=== PATIENT | female | born 1980 | race Caucasian/White ===

== ENCOUNTER 2017-09-23 18:24 | Emergency (ER) | payer OTHER ==
[~2017-09-23] VITALS: Ht 162.6 cm; Wt 111.1 kg
[~2017-09-23 18:24] MED LIST: ACETAMINOPHEN-1 EAC1 PO; AMITRIPTYLINE H25 M2 PO; ANUSOL-HC25 MG RECTAL; BENTYL 10 MG CA10 M1 PO; CEPHALEXIN 500500 M3 PO; CIPRO250 M1 PO; CIPRO500 MG PO; COLACE100 MG PO; COLESTID1 GM PO; DILAUDID 2 MG TA2 MG PO; DONNATAL E16.2 MG/5 PO; ERYTHROMYCIN500 MG PO; FLAGYL500 MG PO; FLEXERIL PO; GABAPENTIN 100100 MG PO; HYDROCODONE-AP1 EAC6 PO; IBUPROFEN 800800 M1 PO; IBUPROFEN 800800 MG PO; LOPERAMIDE 2 MG2 M1 PO; MEDROLDOSEPACK PO; METFORMIN HCL500 MG PO; MIRALAX17 GM PO; MOBIC7.5 MG PO; NOHOMEMEDICATIONS; NORCO 5-325 TA1 EAC1 PO; ONDANSETRON HCL4 M2 PO; OXYCODONE HCL5 M1 PO; OXYCODONE-ACET1 EACH PO; PANTOPRAZOLE SO40 M1 PO; PERCOCET; PERCOCET 5-3251 EACH PO; PERCOCET PO; PHENERGAN 25 MG25 M1 PO; PROAIR HFA8.5 GM INH; PROMETHAZINE D480 ML PO; PROMETHAZINE12.5 M1 PO; PYRIDIUM200 MG PO; RANITIDINE 150150 M1 PO; REGLAN 10 MG TA10 MG PO; TESSALON PERLE100 MG PO; TESSALON200 MG PO; TORADOL 10 MG T10 MG PO; TRAMADOL 50 MG50 MG PO; TRANSDERM-SCO1 PATC1 TRANSDERM; ZANAFLEX2 MG PO; ZANTAC 150MG T150 MG PO; ZOFRAN ODT4 MG PO; ZOFRAN4 MG PO; [UNRECOGNIZED DRUG - REMARK]
[2017-09-23] MEDS ORDERED: INDOMETHACIN 5050 M1 PO (18:44)
[2017-09-23 19:15] LABS: ABSOLUTE BASOPHILS 0.1 thou/uL (0.0-0.2); ABSOLUTE EOSINOPHILS 0.4 thou/uL (0.0-0.7); ABSOLUTE LYMPHOCYTES 3.6 thou/uL (0.8-5.3); ABSOLUTE MONOCYTES 0.9 thou/uL (0.0-1.2); ABSOLUTE NEUTROPHILS 11.3 thou/uL (1.6-8.1); BASOPHILS 0.7 %; EOSINOPHILS 2.4 %; HEMATOCRIT 35.6 % (37.0-47.0); HEMOGLOBIN 11.7 gm/dL (12.0-15.0); LYMPHOCYTES 22.1 %; MCH 26.3 pg (26.0-34.0); MCHC 32.8 g/dL (28.0-37.0); MCV 80.1 fL (80.0-100.0); MONOCYTES 5.5 %; MPV 8.2 fl. (7.2-11.1); NUCLEATED RBCS 0 /100WBC; PLATELET COUNT* 293 thou/uL (150-400); POLYS 69.3 %; RBC 4.45 mil/uL (4.20-5.00); RDW-CV 15.7 % (10.5-14.5); WBC 16.3 thou/uL (4.0-11.0)
[2017-09-23 19:23] LABS: URINE BILIRUBIN NEGATIVE (Negative); URINE BLOOD 1+ (Negative); URINE CLARITY CLEAR; URINE COLOR YELLOW; URINE GLUCOSE-RANDOM NEGATIVE (Negative); URINE KETONES NEGATIVE (Negative); URINE LEUKOCYTES TRACE (Negative); URINE NITRITE NEGATIVE (Negative); URINE PROTEIN NEGATIVE (Negative); URINE SPECIFIC GRAVITY >= 1.030 (1.005-1.030); URINE UROBILINOGEN 0.2 E.U./dl (0.2-1.0)
[2017-09-23 19:23] LABS: CALCIUM 8.5 mg/dL (8.5-10.1); CREATININE 0.9 mg/dL (0.6-1.3); POTASSIUM 3.9 mmol/L (3.5-5.1)
[2017-09-23 19:27] LABS: ALBUMIN 3.5 g/dL (3.4-5.0); TOTAL BILIRUBIN 0.2 mg/dL (<0.1-1.0); TOTAL PROTEIN 7.3 g/dL (6.4-8.2)
[2017-09-23 19:32] LABS: AMP/METHAMP Negative (Negative); BARBITURATES Negative (Negative); BENZODIAZEPINES POSITIVE (Negative); COCAINE Negative (Negative); METHADONE Negative (Negative); OPIATES POSITIVE (Negative); PCP Negative (Negative); THC Negative (Negative)
[2017-09-23 19:36] LABS: SQUAMOUS 4-10 Moderate /LPF (0-3)
[2017-09-23 19:37] LABS: BACTERIA None Seen /HPF (None Seen); CASTS None Seen /LPF (None Seen); MUCUS 0-3 Light strn/LPF (None Seen); URINE RBC 3-10 Few /HPF (0-2); URINE WBC 0-5 Rare /HPF (0-5)
[2017-09-23 19:38] LABS: CRYSTALS None Seen /LPF (None Seen)
[2017-09-23] MEDS ORDERED: NAPROSYN500 MG PO (21:44)
[2017-09-23] MEDS ORDERED: PHENERGAN 25 MG25 M1 PO (21:47)
[2017-09-23] MEDS ORDERED: FLAGYL500 MG PO (22:30)
[2017-09-23] MEDS ORDERED: CIPRO500 M1 PO (22:30)
[2017-09-23 22:55] VITALS: BP 125/75
== END 2017-09-23 22:55 | disposition home or self-care (01) ==
LOC: M.ERS 18:24
PROVIDERS: Nurse Practitioner Family
DX: K52.9 Noninfective gastroenteritis and colitis, unspecified (principal); G89.29 Other chronic pain; M54.9 Dorsalgia, unspecified; G43.909 Migraine, unspecified, not intractable, without status migrainosus; J42 Unspecified chronic bronchitis; F17.210 Nicotine dependence, cigarettes, uncomplicated; Z90.710 Acquired absence of both cervix and uterus; Z90.49 Acquired absence of other specified parts of digestive tract; Z88.5 Allergy status to narcotic agent; Z88.1 Allergy status to other antibiotic agents

== ENCOUNTER 2018-03-31 17:12 | Emergency (ER) | payer OTHER ==
[~2018-03-31] VITALS: Ht 162.6 cm; Wt 108.9 kg
[~2018-03-31 17:12] MED LIST changes: +CIPRO500 M1 PO; +INDOMETHACIN 5050 M1 PO; +NAPROSYN500 MG PO
[2018-03-31 18:26] LABS: URINE BILIRUBIN NEGATIVE (Negative); URINE BLOOD TRACE (Negative); URINE CLARITY CLEAR; URINE COLOR YELLOW; URINE GLUCOSE-RANDOM NEGATIVE (Negative); URINE KETONES NEGATIVE (Negative); URINE LEUKOCYTES-REFLEX NEGATIVE (Negative); URINE NITRITE-REFLEX NEGATIVE (Negative); URINE PROTEIN NEGATIVE (Negative); URINE UROBILINOGEN 0.2 E.U./dl (0.2-1.0)
[2018-03-31 18:35] LABS: ABSOLUTE BASOPHILS 0.1 thou/uL (0.0-0.2); ABSOLUTE EOSINOPHILS 0.2 thou/uL (0.0-0.7); ABSOLUTE LYMPHOCYTES 3.2 thou/uL (0.8-5.3); ABSOLUTE MONOCYTES 0.8 thou/uL (0.0-1.2); ABSOLUTE NEUTROPHILS 11.7 thou/uL (1.6-8.1); BASOPHILS 0.9 %; EOSINOPHILS 1.2 %; HEMATOCRIT 36.7 % (37.0-47.0); HEMOGLOBIN 12.1 gm/dL (12.0-15.0); LYMPHOCYTES 19.8 %; MCH 26.5 pg (26.0-34.0); MCV 80.3 fL (80.0-100.0); MPV 8.5 fl. (7.2-11.1); NUCLEATED RBCS 0 /100WBC; PLATELET COUNT* 279 thou/uL (150-400); POLYS 73.1 %; RBC 4.57 mil/uL (4.20-5.00); RDW-CV 17.1 % (10.5-14.5)
[2018-03-31 18:45] LABS: CALCIUM 9.5 mg/dL (8.5-10.1); CREATININE 0.9 mg/dL (0.6-1.3); POTASSIUM 3.8 mmol/L (3.5-5.1)
[2018-03-31 18:49] LABS: ALBUMIN 3.5 g/dL (3.4-5.0); TOTAL BILIRUBIN 0.2 mg/dL (<0.1-1.0); TOTAL PROTEIN 8.1 g/dL (6.4-8.2)
[2018-03-31] MEDS ORDERED: BENTYL 20 MG TA20 M1 PO (21:03)
[2018-03-31 21:23] VITALS: BP 122/76
== END 2018-03-31 21:27 | disposition home or self-care (01) ==
LOC: M.ERS 17:12
PROVIDERS: Nurse Practitioner Family
DX: K52.9 Noninfective gastroenteritis and colitis, unspecified (principal); G43.909 Migraine, unspecified, not intractable, without status migrainosus; M54.9 Dorsalgia, unspecified; G89.29 Other chronic pain; Z90.49 Acquired absence of other specified parts of digestive tract; Z90.710 Acquired absence of both cervix and uterus; F17.210 Nicotine dependence, cigarettes, uncomplicated; Z88.5 Allergy status to narcotic agent; Z88.8 Allergy status to other drugs, medicaments and biological substances

== ENCOUNTER 2020-03-21 11:39 | Emergency (ER) | payer OTHER ==
[~2020-03-21] VITALS: Ht 162.6 cm; Wt 106.6 kg
[~2020-03-21 11:39] MED LIST changes: +BENTYL 20 MG TA20 M1 PO
[2020-03-21 12:56] LABS: ABSOLUTE BASOPHILS 0.1 thou/uL (0.0-0.2); ABSOLUTE EOSINOPHILS 0.1 thou/uL (0.0-0.7); ABSOLUTE LYMPHOCYTES 1.9 thou/uL (0.8-5.3); ABSOLUTE MONOCYTES 0.6 thou/uL (0.0-1.2); ABSOLUTE NEUTROPHILS 10.7 thou/uL (1.6-8.1); BASOPHILS 0.7 %; EOSINOPHILS 0.9 %; HEMATOCRIT 37.4 % (37.0-47.0); HEMOGLOBIN 12.4 gm/dL (12.0-15.0); LYMPHOCYTES 13.9 %; MCH 26.6 pg (26.0-34.0); MCHC 33.1 g/dL (28.0-37.0); MCV 80.4 fL (80.0-100.0); MONOCYTES 4.7 %; MPV 8.2 fl. (7.2-11.1); NUCLEATED RBCS 0 /100WBC; PLATELET COUNT* 262 thou/uL (150-400); POLYS 79.8 %; RBC 4.66 mil/uL (4.20-5.00); RDW-CV 15.3 % (10.5-14.5); WBC 13.4 thou/uL (4.0-11.0)
[2020-03-21 13:03] LABS: CALCIUM 8.8 mg/dL (8.5-10.1); CREATININE 0.8 mg/dL (0.6-1.3)
[2020-03-21 13:12] LABS: ALBUMIN 3.3 g/dL (3.4-5.0); TOTAL BILIRUBIN 0.3 mg/dL (<0.1-1.0); TOTAL PROTEIN 7.8 g/dL (6.4-8.2)
[2020-03-21 13:16] LABS: INFLUENZA A ANTIGEN Negative (Negative); INFLUENZA B ANTIGEN Negative (Negative)
[2020-03-21] MEDS ORDERED: VENTOLIN HFA 1818 GM INH (13:34)
[2020-03-21] MEDS ORDERED: TESSALON PERLE100 MG PO (13:34)
[2020-03-21] MEDS ORDERED: ZPAK PO (13:34)
[2020-03-21 13:48] VITALS: BP 162/78
--- NOTE | 2020-03-21 14:38 | EKG ---
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1980 Requested By: Darek Montemayor Order Number: [id number] MD: Hermelindo Daly Measurements Intervals Colome Rate: 89 P: 40 VT: 166 QRS: -13 QRSD: 106 T: 26 QT: 374 QTc: 456 Interpretive Statements Sinus rhythm Low voltage, precordial leads Baseline wander in lead(s) V1,V3,V4,V5,V6 Compared to ECG 05/27/2017 13:46:02 No significant changes Electronically Signed On 03-21-2020 14:37:53 CDT by Hermelindo Daly [email or web address] <ELECTRONICALLY SIGNED> By: Hermelindo Daly MD, [facility] 03/21/20 1437 1147 1147 Hermelindo Daly MD, [facility] /EPI
== END 2020-03-21 13:48 | disposition home or self-care (01) ==
LOC: M.ERS 11:39
PROVIDERS: Nurse Practitioner Family
DX: J98.8 Other specified respiratory disorders (principal); R73.9 Hyperglycemia, unspecified; G43.909 Migraine, unspecified, not intractable, without status migrainosus; G89.29 Other chronic pain; F17.210 Nicotine dependence, cigarettes, uncomplicated; Z20.828 Contact with and (suspected) exposure to other viral communicable diseases; Z90.710 Acquired absence of both cervix and uterus; Z90.49 Acquired absence of other specified parts of digestive tract; Z88.1 Allergy status to other antibiotic agents; Z88.6 Allergy status to analgesic agent